=== PATIENT | male | born 1980 | race Caucasian/White ===

== ENCOUNTER 2021-07-06 03:54 | Emergency (ER) | payer SELFPAY ==
[~2021-07-06] VITALS: Ht 188 cm; Wt 86.4 kg
[2021-07-06 04:02] VITALS: BP 153/103
== END 2021-07-06 04:23 ==
LOC: ER 03:54
DX: Z02.89 Encounter for other administrative examinations (principal); V89.2XXA Person injured in unspecified motor-vehicle accident, traffic, initial encounter; Y93.89 Activity, other specified; Y92.89 Other specified places as the place of occurrence of the external cause; Y99.8 Other external cause status
CPT/HCPCS: 99283